=== PATIENT | male | born 2000 | race Caucasian/White ===

== ENCOUNTER 2018-12-12 15:05 | Emergency (ER) | payer OTHER ==
[2018-12-12] MEDS ORDERED: Sodium Chloride 0.9% 1,000 ML IV ONE (15:15)
[2018-12-12] MEDS ORDERED: Ondansetron 4 MG/2 ML SDV IVPUSH ONE (15:15)
[2018-12-12] MEDS ORDERED: Ketorolac 30 MG/ML SDV IVPUSH ONE (15:15)
--- NOTE | 2018-12-12 15:15 | EDM.PDOC ---
ED HPI GENERAL MEDICAL PROBLEM - General Chief Complaint: Abdominal Pain Stated Complaint: PAIN IN STOMACH Time Seen by Provider: 12/12/18 15:14 Source of Information: Reports: Patient - History of Present Illness INITIAL COMMENTS - FREE TEXT/NARRATIVE: HISTORY AND PHYSICAL: History of present illness: [Patient presents with primary complaint of nasal congestion for 2 weeks History secondary complaint of abdominal pain for 2 days or out of 10 diffuse nonfocal He's a type I diabetic whom has not been following his glucose as his glucometer had broken , he has been taking insulin however he is simply been guessing at his needs No fever nausea vomiting chills sweats no chest pain shortness breath headache dizziness palpitation no bowel or urine symptoms] Review of systems: As per history of present illness and below otherwise all systems reviewed and negative. Past medical history: As per history of present illness and as reviewed below otherwise noncontributory. Surgical history: As per history of present illness and as reviewed below otherwise noncontributory. Social history: No reported history of drug or alcohol abuse. Family history: As per history of present illness and as reviewed below otherwise noncontributory. Physical exam: HEENT: Atraumatic, normocephalic, pupils reactive, negative for conjunctival pallor or scleral icterus, mucous membranes moist, throat clear, neck supple, nontender, trachea midline. Lungs: Clear to auscultation, breath sounds equal bilaterally, chest nontender. Heart: S1S2, regular, negative for clicks, rubs, or JVD. Abdomen: Soft, nondistended, nontender. Negative for masses or hepatosplenomegaly. Negative for costovertebral tenderness. Pelvis: Stable nontender. Genitourinary: Deferred. Rectal: Deferred. Extremities: Atraumatic, negative for cords or calf pain. Neurovascular unremarkable. Neuro: Awake, alert, oriented. Cranial nerves II through XII unremarkable. Cerebellum unremarkable. Motor and sensory unremarkable throughout. Exam nonfocal. Diagnostics: [CBC CMP UA lipase CT abdomen pelvis with contrast ]ABG Therapeutics: Normal saline Zofran Toradol Insulin 10 units IV Insulin 10 units subcutaneous refused by patientAs he states his blood sugar will change rapidly [] We did obtain a coupon for a discounted glucometer at the pharmacy SPARQ 500 by mouth daily Impression: Sinusitis Dehydration Hyperglycemia Gastroparesis Abdominal pain secondary to above Noncompliant type I diabetic Definitive disposition and diagnosis as appropriate pending reevaluation and review of above. upon coughing Pain Score (Numeric/FACES): 8 - Related Data Allergies Allergy/AdvReac Type Severity Reaction Status Date / Time Penicillins Allergy Hives Verified 12/12/18 15:23 Home Meds: Home Meds Insulin Lispro [HumaLOG] 1 unit SQ ACBED 12/12/18 [History] ED ROS GENERAL - Review of Systems Review Of Systems: See Below ED EXAM, GENERAL - Physical Exam Exam: See Below Course - Vital Signs Last Recorded V/S: Last Vital Signs Temp 97.4 F 12/12/18 15:24 Pulse 85 12/12/18 15:24 Resp 18 12/12/18 15:24 BP 124/77 12/12/18 15:24 Pulse Ox 96 12/12/18 15:24 - Orders/Labs/Meds Orders: Active Orders 24 hr Category Date Time Status CULTURE STREP A CONFIRMATION [RM] Stat Lab 12/12/18 15:30 Results STREP SCRN A RAPID W CULT CONF [RM] Stat Lab 12/12/18 15:30 Results UA RFX MANE AND CULT IF INDIC [URIN] Stat Lab 12/12/18 15:15 Ordered Labs: Laboratory Tests 12/12/18 12/12/18 12/12/18 Range/Units 15:29 15:29 16:40 WBC 8.74 (4.0-11.0) K/uL RBC 4.99 (4.50-5.90) M/uL Hgb 14.8 (13.0-17.0) g/dL Hct 44.8 (38.0-50.0) % MCV 89.8 (80.0-98.0) fL MCH 29.7 (27.0-32.0) pg MCHC 33.0 (31.0-37.0) g/dL RDW Std Deviation 38.4 (28.0-62.0) fl RDW Coeff of Arthur 12 (11.0-15.0) % Plt Count 318 (150-400) K/uL MPV 10.60 (7.40-12.00) fL Neut % (Auto) 64.4 (48.0-80.0) % Lymph % (Auto) 26.1 (16.0-40.0) % [place] % (Auto) 8.5 (0.0-15.0) % Eos % (Auto) 0.7 (0.0-7.0) % Baso % (Auto) 0.3 (0.0-1.5) % Neut # (Auto) 5.6 (1.4-5.7) K/uL Lymph # (Auto) 2.3 (0.6-2.4) K/uL [place] # (Auto) 0.7 (0.0-0.8) K/uL Eos # (Auto) 0.1 (0.0-0.7) K/uL Baso # (Auto) 0.0 (0.0-0.1) K/uL Nucleated RBC % 0.0 /100WBC Nucleated RBCs # 0 K/uL ABG pH 7.388 (7.35-7.45) ABG pCO2 40 (35-45) mmHG ABG pO2 93 (75-100) mmHG ABG HCO3 24 (22-26) mEq/L ABG Total CO2 21.4 ABG Base Excess -0.8 (-2.0-2.0) Sodium 133 L (136-148) mmol/L Potassium 4.5 (3.5-5.1) mmol/L Chloride 99 (98-107) mmol/L Carbon Dioxide 25.9 (21.0-32.0) mmol/L BUN 11 (7.0-18.0) mg/dL Creatinine 1.2 (0.8-1.3) mg/dL Est Cr Clr Drug Dosing 104.58 mL/min Estimated GFR (MDRD) > 60.0 ml/min Glucose 614 H* (74-106) mg/dL Calcium 8.9 (8.5-10.1) mg/dL Total Bilirubin 0.4 (0.2-1.0) mg/dL AST 11 L (15-37) IU/L ALT 18 (14-63) IU/L Alkaline Phosphatase 120 H (46-116) U/L Total Protein 7.5 (6.4-8.2) g/dL Albumin 3.4 (3.4-5.0) g/dL Globulin 4.1 H (2.6-4.0) g/dL Albumin/Globulin Ratio 0.8 L (0.9-1.6) Lipase 103 (73-393) U/L Meds: Medications Discontinued Medications Generic Name Dose Route Start Last Admin Trade Name Luisa PRN Reason Stop Dose Admin Sodium Chloride 1,000 mls @ 999 mls/hr 12/12/18 15:15 12/12/18 15:50 Normal Saline IV 12/12/18 16:15 999 mls/hr STAT ONE Administration Insulin Human Regular 10 unit 12/12/18 15:47 12/12/18 15:53 Novolin R IVPUSH 12/12/18 15:48 10 unit ONETIME ONE Administration Protocol Insulin Human Regular 10 unit 12/12/18 16:11 Novolin R SUBCUT 12/12/18 16:12 NOW STA Protocol Ketorolac Tromethamine 30 mg 12/12/18 15:15 12/12/18 15:50 Toradol IVPUSH 12/12/18 15:16 30 mg ONETIME ONE Administration Ondansetron HCl 8 mg 12/12/18 15:15 12/12/18 15:50 Zofran IVPUSH 12/12/18 15:16 8 mg ONETIME ONE Administration Departure - Departure Time of Disposition: 17:11 Disposition: Home, Self-Care 01 Condition: Good Clinical Impression: Sinusitis, Hyperglycemia - Discharge Information Referrals: PCP,None [Primary Care Provider] - Forms: ED Department Discharge Additional Instructions: The following information is given to patients seen in the emergency department who are being discharged to home. This information is to outline your options for follow-up care. We provide all patients seen in our emergency department with a follow-up referral. The need for follow-up, as well as the timing and circumstances, are variable depending upon the specifics of your emergency department visit. If you don't have a primary care physician on staff, we will provide you with a referral. We always advise you to contact your personal physician following an emergency department visit to inform them of the circumstance of the visit and for follow-up with them and/or the need for any referrals to a consulting specialist. The emergency department will also refer you to a specialist when appropriate. This referral assures that you have the opportunity for follow-up care with a specialist. All of these measure are taken in an effort to provide you with optimal care, which includes your follow-up. Under all circumstances we always encourage you to contact your private physician who remains a resource for coordinating your care. When calling for follow-up care, please make the office aware that this follow-up is from your recent emergency room visit. If for any reason you are refused follow-up, please contact the [facility] emergency department at and asked to speak to the emergency department charge nurse. - My Orders Last 24 Hours: My Active Orders 12/12/18 15:15 UA RFX MANE AND CULT IF INDIC [URIN] Stat 12/12/18 15:30 CULTURE STREP A CONFIRMATION [RM] Stat STREP SCRN A RAPID W CULT CONF [RM] Stat - Assessment/Plan Last 24 Hours: My Active Orders 12/12/18 15:15 UA RFX MANE AND CULT IF INDIC [URIN] Stat 12/12/18 15:30 CULTURE STREP A CONFIRMATION [RM] Stat STREP SCRN A RAPID W CULT CONF [RM] Stat
[2018-12-12] MEDS ORDERED: Insulin Regular, Human 100 Units/ML 10 ML Vial IVPUSH ONE (15:47)
[2018-12-12 16:09] LABS: CHLORIDE,CL 99 mmol/L (98-107); SODIUM,NA 133 mmol/L (136-148)
[2018-12-12] MEDS ORDERED: Insulin Regular, Human 100 Units/ML 10 ML Vial SUBCUT STA (16:11)
--- NOTE | 2018-12-12 17:09 | CR ---
INDICATION: Pain TECHNIQUE: Portable upright and supine frontal radiographs of the abdomen COMPARISON: None FINDINGS AND IMPRESSION: No dilated loops of small bowel to suggest small bowel obstruction. No air beneath the diaphragms. Osseous structures grossly within normal limits. Dictated by Leticia Rider MD @ 12/12/2018 5:07:05 PM Dictated by: Leticia Rider MD @ 12/12/2018 17:07:26 (Electronically Signed)
== END 2018-12-12 17:23 | disposition home or self-care (01) ==
LOC: MW.ED 15:05
DX: E86.0 Dehydration (principal); J32.9 Chronic sinusitis, unspecified; E10.65 Type 1 diabetes mellitus with hyperglycemia; E10.43 Type 1 diabetes mellitus with diabetic autonomic (poly)neuropathy; K31.84 Gastroparesis; Z88.0 Allergy status to penicillin
CPT/HCPCS: 36415; 36600; 74019; 80053; 82803; 82962; 83690; 85025; 87081; 87804; 87880; 96361; 96374; 96375; 99284; J1885; J2405; J7040; J1815-GY

== ENCOUNTER 2019-07-19 19:16 | Emergency (ER) | payer OTHER ==
--- NOTE | 2019-07-19 19:32 | EDM.PDOC ---
ED HPI GENERAL MEDICAL PROBLEM - General Chief Complaint: Medication Administration Stated Complaint: MED REFILL Time Seen by Provider: 07/19/19 19:29 Source of Information: Reports: Patient History Limitations: Reports: No Limitations - History of Present Illness INITIAL COMMENTS - FREE TEXT/NARRATIVE: HISTORY AND PHYSICAL: History of present illness: Patient is a 18-year-old male presents to the ED for a medication refill. He states he ran out of his insulin for his pump just before arrival to the ED. He called his pharmacy and states he does not have any refills. He sees a provider in [place], states he will call them tomorrow to get his refill renewed and make a follow up appointment. He has no other complaints or concerns at this time. Review of systems: As per history of present illness and below otherwise all systems reviewed and negative. Past medical history: As per history of present illness and as reviewed below otherwise noncontributory. Surgical history: As per history of present illness and as reviewed below otherwise noncontributory. Social history: No reported history of drug or alcohol abuse. Family history: As per history of present illness and as reviewed below otherwise noncontributory. Physical exam: General: Patient sitting comfortably in no acute distress and nontoxic appearing HEENT: Atraumatic, normocephalic, pupils reactive, negative for conjunctival pallor or scleral icterus, mucous membranes moist, throat clear, neck supple, nontender, trachea midline. No meningeal signs. Lungs: Clear to auscultation, breath sounds equal bilaterally, chest nontender. Heart: S1S2, regular, negative for clicks, rubs, or overt murmur. Abdomen: Soft, nondistended, nontender. Negative for masses or hepatosplenomegaly. Negative for costovertebral tenderness. No rigidity, rebound , guarding. Pelvis: Stable nontender. Genitourinary: Deferred. Rectal: Deferred. Extremities: Atraumatic, negative for cords or calf pain. Neurovascular unremarkable. Neuro: Awake, alert, oriented. Cranial nerves II through XII unremarkable. Cerebellum unremarkable. Motor and sensory unremarkable throughout. Exam nonfocal. Notes: Diagnostics: none Therapeutics: [] Prescriptions: Humalog Impression: Medication refill Plan: Take medication as instructed Follow up with primary care provider Return to ED as needed as discussed Definitive disposition and diagnosis as appropriate pending reevaluation and review of above. - Related Data Allergies Allergy/AdvReac Type Severity Reaction Status Date / Time Penicillins Allergy Hives Verified 07/19/19 19:28 Home Meds: Home Meds Insulin Lispro [HumaLOG] 1 unit SQ ACBED 12/12/18 [History] Past Medical History Endocrine/Metabolic History: Reports: Diabetes, Type II - Infectious Disease History Infectious Disease History: Reports: None Social & Family History - Family History Family Medical History: Noncontributory ED ROS GENERAL - Review of Systems Review Of Systems: ROS reveals no pertinent complaints other than HPI. ED EXAM, GENERAL - Physical Exam Exam: See Below (see dictation) Course - Vital Signs Last Recorded V/S: Last Vital Signs Temp 97.5 F 07/19/19 19:16 Pulse 71 07/19/19 19:16 Resp 16 07/19/19 19:16 BP 116/75 07/19/19 19:16 Pulse Ox 97 07/19/19 19:16 Departure - Departure Time of Disposition: 19:36 Disposition: Home, Self-Care 01 Condition: Good Clinical Impression: Medication refill - Discharge Information Instructions: Medicine Refill at the Emergency Department Referrals: PCP,Unknown [Primary Care Provider] - Forms: ED Department Discharge Additional Instructions: The following information is given to patients seen in the emergency department who are being discharged to home. This information is to outline your options for follow-up care. We provide all patients seen in our emergency department with a follow-up referral. The need for follow-up, as well as the timing and circumstances, are variable depending upon the specifics of your emergency department visit. If you don't have a primary care physician on staff, we will provide you with a referral. We always advise you to contact your personal physician following an emergency department visit to inform them of the circumstance of the visit and for follow-up with them and/or the need for any referrals to a consulting specialist. The emergency department will also refer you to a specialist when appropriate. This referral assures that you have the opportunity for follow-up care with a specialist. All of these measure are taken in an effort to provide you with optimal care, which includes your follow-up. Under all circumstances we always encourage you to contact your private physician who remains a resource for coordinating your care. When calling for follow-up care, please make the office aware that this follow-up is from your recent emergency room visit. If for any reason you are refused follow-up, please contact the [facility] Emergency Department at and asked to speak to the emergency department charge nurse. [facility] [address] [place] [id number] [id number] Take medication as instructed Follow up with primary care provider Return to ED as needed as discussed
== END 2019-07-19 19:42 | disposition home or self-care (01) ==
LOC: MW.ED 19:16
DX: Z76.0 Encounter for issue of repeat prescription (principal); E11.9 Type 2 diabetes mellitus without complications; Z79.4 Long term (current) use of insulin; Z88.0 Allergy status to penicillin
CPT/HCPCS: 99281